=== PATIENT | female | born 1955 | race Caucasian/White ===

== ENCOUNTER 2017-08-31 08:13 | Day surgery (SDC) | payer BC, OTHER ==
[~2017-08-31 08:13] MED LIST: METO25TA35 PO; VITAMINS
[2017-08-31] MEDS ORDERED: LIDOCAINE 1%-EPI 1:100K, 20ML SQ PRN (09:00)
[2017-08-31] MEDS ORDERED: LIDOCAINE 2%, 20ML SQ PRN (09:00)
[2017-08-31] MEDS ORDERED: LIDOCAINE-MPF 2% ,5ML ONE (09:11)
== END 2017-08-31 09:47 | disposition home or self-care (01) ==
LOC: CACL 08:13
PROVIDERS: ATTEND Internal Medicine Cardiovascular Disease
DX: I48.91 Unspecified atrial fibrillation (principal)
CPT/HCPCS: 33282; C1764; J3490